=== PATIENT | female | born 1950 | race Two or more races ===

== ENCOUNTER → 2021-06-06 09:49 | Outpatient (BNVA) | payer MEDICARE, SELFPAY | PROVIDERS: PCP Physician Assistant Medical; Visit Provider Internal Medicine Rheumatology | DX: M23.92 Unspecified internal derangement of left knee (principal); M65.841 Other synovitis and tenosynovitis, right hand; M16.0 Bilateral primary osteoarthritis of hip; M70.61 Trochanteric bursitis, right hip; M70.62 Trochanteric bursitis, left hip | CPT/HCPCS: 20550; 20610; 99212 ==

== ENCOUNTER 2021-06-25 15:45 | Outpatient (REF) | payer MEDICARE, SELFPAY ==
--- NOTE | ~2021-06-25 | MR_ITS ---
EXAMINATION: MR KNEE WITHOUT CONTRAST, LEFT CLINICAL INFORMATION: Left knee pain and swelling. Twisting injury. COMPARISON: None TECHNIQUE: MRI of the knee without contrast was performed using routine sequences on a high-field scanner. FINDINGS: MENISCI: Medial Meniscus: Inner margin fraying/tearing of the posterior horn and root. Lateral Meniscus: Intact. LIGAMENTS: Cruciate: Intact. Collateral: Intact. EXTENSOR MECHANISM: Intact. ARTICULAR CARTILAGE/BONE: Patellofemoral Compartment: Full-thickness articular cartilage fissuring at the superior aspect of the patellar median ridge with underlying subchondral cystic change. Tiny marginal osteophytes. Medial Compartment: At the medial aspect of the weight-bearing medial femoral condyle there is subchondral abnormal marrow signal measuring 0.6 x 0.6 cm with prominent adjacent marrow edema, periosteal reaction, and soft tissue edema, consistent with a nondisplaced subchondral fracture. Lateral Compartment: Intact articular cartilage. JOINT FLUID AND BURSAE: Trace joint effusion and trace Galarza's cyst. MR/MR knee LT wo con IMPRESSION: 1. Nondisplaced subchondral fracture at the medial aspect of the medial femoral condyle measuring 0.6 cm with prominent adjacent marrow edema, periosteal reaction, and soft tissue edema. 2. Minimal patellofemoral arthrosis. Trace joint effusion and trace Galarza's cyst. 3. Inner margin fraying/tearing of the medial meniscus posterior horn and root.
== END 2021-06-25 15:46 | disposition home or self-care (01) ==
LOC: HO.MRI 15:45
PROVIDERS: Visit Provider Internal Medicine Rheumatology
DX: M23.92 Unspecified internal derangement of left knee (principal)
CPT/HCPCS: 73721

== ENCOUNTER → 2021-08-05 10:15 | Outpatient (BNVA) | payer MEDICARE, SELFPAY | PROVIDERS: PCP Physician Assistant Medical; Visit Provider Internal Medicine Rheumatology | DX: M70.61 Trochanteric bursitis, right hip (principal); M70.62 Trochanteric bursitis, left hip; M16.0 Bilateral primary osteoarthritis of hip; S72.413 Displaced unspecified condyle fracture of lower end of unspecified femur | CPT/HCPCS: 20610; 99212 ==

== ENCOUNTER → 2021-11-07 09:38 | Outpatient (BNVA) | payer MEDICARE, SELFPAY | PROVIDERS: PCP Physician Assistant Medical; Visit Provider Internal Medicine Rheumatology | DX: M16.0 Bilateral primary osteoarthritis of hip (principal); M70.62 Trochanteric bursitis, left hip; M70.61 Trochanteric bursitis, right hip | CPT/HCPCS: 20610; 99212 ==

== ENCOUNTER → 2022-02-11 10:43 | Outpatient (BNVA) | payer MEDICARE, SELFPAY | PROVIDERS: PCP Physician Assistant Medical; Visit Provider Internal Medicine Rheumatology | DX: M17.12 Unilateral primary osteoarthritis, left knee (principal); M70.62 Trochanteric bursitis, left hip; M70.61 Trochanteric bursitis, right hip | CPT/HCPCS: 20610; 99212 ==

== ENCOUNTER → 2022-07-22 11:15 | Outpatient (BNVA) | payer MEDICARE, SELFPAY | PROVIDERS: PCP Physician Assistant Medical; Visit Provider Internal Medicine Rheumatology | DX: M70.61 Trochanteric bursitis, right hip (principal); M70.62 Trochanteric bursitis, left hip; M65.9 Synovitis and tenosynovitis, unspecified | CPT/HCPCS: 20550; 20610; 99212 ==

== ENCOUNTER 2022-12-25 10:54 | Outpatient (AMB) | payer MEDICARE, SELFPAY ==
--- NOTE | 2022-12-25 10:55 | MHC.OFFVIS ---
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 Accompanied by: Self / Same As Patient Allergies Penicillins Allergy (Intermediate, Verified 12/25/22 11:01) itchy Sulfa (Sulfonamide Antibiotics) Allergy (Intermediate, Verified 12/25/22 11:01) burning Medication List - Last Reconciled 12/25/22 by Janae Cruz RN alendronate 70 mg PO QWEEK allopurinol 100 mg PO DAILY dulaglutide (Trulicity) 3 mg subcut QWEEK escitalopram oxalate 20 mg PO DAILY estradiol 0.01%(0.1mg/gram) 1 g vaginal 2XW fexofenadine (Allergy Relief (fexofenadine)) 180 mg PO DAILY hydrochlorothiazide 25 mg PO DAILY insulin glargine (Lantus Solostar U-100 Insulin) 10 units subcut QPM PRN lisinopril 2.5 mg PO DAILY metformin ER 500 mg PO BID metoprolol tartrate 75 mg PO BID minocycline 50 mg PO DAILY loqukhig-aya-RT-lycopen-lutein 0.4 mg-300 mcg- 250 mcg (Centrum Silver) 1 tab PO DAILY potassium citrate ER 10 mEq PO BID pseudoephedrine HCl ER (Sudafed 12 Hour) 120 mg PO Q12H simvastatin 10 mg PO BEDTIME HPI HPI Comments History of Present Illness Details The patient returns today for evaluation of her osteoarthritis and trochanteric bursitis. Back in July she had received a trochanteric corticosteroid injection on the right and a right 3rd flexor tendon records steroid injection for tenosynovitis. The right wrist has done fine following fracture earlier in the year that required surgery. She still gets some pain in the right wrist where she had a fracture earlier this year. It mostly comes on with heavier weight-bearing activity. About 6 weeks ago the right lateral hip pain started to come back again. This was eventually accompanied by knee pain on the right. Most the knee pain is on the medial aspect. Both pains come on with more weight-bearing activity such as walking. She thinks the knee may be occasionally swollen. She takes occasional acetaminophen for her symptoms. There are plans for a trip to [email or web address] in April with her grandchildren. [facility] Medical History (Updated 12/25/22 @ 13:43 by Shabbir Patel MD) Trochanteric bursitis, left hip Fracture of condyle of femur Internal derangement of left knee Trochanteric bursitis of both hips Osteoarthritis, hip, bilateral Hypertension Kidney stones Type 2 diabetes mellitus Social History Household Members: Spouse Housing: House Are you a primary critical care technician to a significant other at home: No Do you presently have visiting nurse or other home services: No 75 years or older and lives alone: No Alcohol intake: never Patient Tobacco Use Status: Never used Tobacco e-Cigarette/Vaping Use: Never Used service: No Current occupational status: retired Review of Systems Const Details: Negative for appetite change, weight change, fever, chills, malaise and fatigue Card Details: Negative chest pain, edema and syncope Resp Details: Negative for SOB, cough and wheezing Endo Details: Negative for polyuria and polydypsia Sukumar/Lymph Details: Negative for excessive bruising or bleeding. Physical Exam Vital Signs: Last Vital Signs Temp 97.6 F 12/25/22 10:57 Pulse 92 12/25/22 10:57 Resp 15 12/25/22 10:57 BP 110/72 12/25/22 10:57 Pulse Ox 97 12/25/22 10:57 Oxygen Delivery Method Room Air 12/25/22 10:57 BMI result Body Mass Index 24.6 APPEARANCE: Patient in no acute distress EXTREMITIES: No edema, no calf tenderness, normal peripheral pulses. Hands:? Right:? no pain with range of motion at the fingers. There is no triggering and tenderness.? .? There is minimal bony enlargement at the thumb IP and 2nd 3rd PIP is with minimal tenderness in the 2nd and 3rd PIP joints.? There is slight thenar atrophy and there is questionable sensory loss over the fingertips.? Left:Normal pain-free range of motion without tenderness.? There is some minimal bony enlargement at the 2nd and 3rd PIP without tenderness.? Elsewhere there is no flexor tendon triggering, soft tissue swelling, increased warmth, thenar atrophy, sensory loss or erythema. Wrists: Right: There is a healed scar along the volar aspect. It seems well healed. She actually flexes to about 75 degrees and extends to 80 degrees with minimal discomfort. No redness or tenderness although the wrist seems thicker than on the left side. Left:? Normal pain-free range of motion without tenderness, swelling, increased warmth or erythema. Hips:? Right:? Slight groin and mild lateral hip pain with 10 degrees of internal or external rotation.? Left:? Full range of motion with mild lateral pains at the extremes of normal rotation. Hip bursa:? Moderate right and mild left trochanteric tenderness. Knees:.??Right:? Normal pain-free range of motion with mild medial tenderness without effusion, soft tissue swelling, increased warmth or erythema.? There is slight patellofemoral crepitation.? Left:? Mild discomfort with extremes of normal range of motion. There is some mild medial tenderness without redness or effusion. There is some slight patellofemoral crepitus. There is no popliteal tenderness or swelling. Office Procedures Joint Injection/Drain Joint Injection/Drain Primary Site: right knee Secondary Site: other Injected: 80 mg of, Kenalog, with 3 mL of and 1% plain lidocaine Coding Details: With the patient's consent the right knee was prepped with ChloraPrep and alcohol. The skin was anesthetized with 2 cc of 1% lidocaine. The knee was then injected with 40 mg of triamcinolone and 1 cc of I % lidocaine. The patient tolerated the procedure with no immediate adverse effects. With the patient's consent, the right lateral hip area was prepped with for Chloraprep and alcohol. Under a topical ethyl chloride spray the tender area over the trochanteric region was injected with 40 mg of Kenalog and 1 cc of 1% lidocaine. The patient tolerated the procedure with no adverse effects. 95681 - Large joint (With the patient's consent the right knee was prepped with ChloraPrep and alcohol. The skin was anesthetized with 2 cc of 1% lidocaine. The knee was then injected with 40 mg of triamcinolone and 1 cc of I % lidocaine. The patient tolerated the procedure with no immediate adverse effects. With th) Procedure code (CPT) selection complete Results Reviewed Results Reviewed: [facility] [employer] MEDICAL Imaging Result Report Patient: Ann Marie Boyce Date of Service: 06/04/21 ? ? Patient Gender: Female Ordering Provider: Meryl Tidwell : 1950 ? ? ? Final X-RAY KNEE 4+ VIEW WITH INJURY Exam Date: 06/04/2021 1:37 PM Ordering Diagnosis: Chronic pain of both knees ? BILATERAL KNEES ? VIEWS: Lateral x2, Frontal (bilateral), Tunnel (bilateral), and Merchant (bilateral) ? HISTORY: Chronic pain. ? PRIOR: Right knee 12/19/2016. ? FINDINGS: ? There is spurring at the insertion of quadriceps tendon and patellar tendon on the patella bilaterally. ? No fracture or malalignment is seen. Soft tissues are normal. The patellae are normally positioned on the Merchant view. No joint effusion is seen. ? IMPRESSION IMPRESSION: No acute findings. ? ? Reading Radiologist: Cc: Assessment & Plan Assessment & Plan (1) Osteoarthritis of right knee: Code(s): M17.11 - Unilateral primary osteoarthritis, right knee (2) Trochanteric bursitis of right hip: Code(s): M70.61 - Trochanteric bursitis, right hip Plan Patient has some painful motion and tenderness at the medial compartment in the right knee. This does suggest degenerative arthritis. She has mild OA noted on previous radiographs of the knees so this is likely an exacerbation in the medial compartment. The right hip has again some tenderness on the trochanteric region consistent with trochanteric bursitis although there is some underlying osteoarthritis in the hip. She wants to go with both injections today. We reviewed potential side effects of such injections. With the patient's consent the right knee was prepped with ChloraPrep and alcohol. The skin was anesthetized with 2 cc of 1% lidocaine. The knee was then injected with 40 mg of triamcinolone and 1 cc of I % lidocaine. The patient tolerated the procedure with no immediate adverse effects. With the patient's consent, the right lateral hip area was prepped with for Chloraprep and alcohol. Under a topical ethyl chloride spray the tender area over the trochanteric region was injected with 40 mg of Kenalog and 1 cc of 1% lidocaine. The patient tolerated the procedure with no adverse effects. She will rest the area for a few days. We will send her to physical therapy particularly with respect to get exercises for the knee. She wants to go to the [facility] in [place]. I told her I would not inject any further of these 2 joints for at least 4 or 5 months. Orders: Orders AMB Joint Injection/Aspiration Today M17.11 - Unilateral primary osteoarthritis, right knee, M70.61 - Trochanteric bursitis, right hip XR knee RT 3V Today M17.11 - Unilateral primary osteoarthritis, right knee PT Evaluation and Treatment Today M17.11 - Unilateral primary osteoarthritis, right knee Coding Level of Care Code Est Pt Level 3 (14944) Diagnoses Osteoarthritis of right knee M17.11 Trochanteric bursitis of right hip M70.61 CPT Codes Coding - 74617 Large joint: 11646 - Large joint ([id number])
[2022-12-25 10:57] VITALS: BP 110/72; PULSE 92; RESP 15; TEMP 36.4; O2SAT 97; BMI 24.6
== END 2022-12-25 11:47 | disposition home or self-care (01) ==
LOC: HO.RHE 10:54
PROVIDERS: PCP Physician Assistant Medical; Visit Provider Internal Medicine Rheumatology
DX: M17.11 Unilateral primary osteoarthritis, right knee (principal); M70.61 Trochanteric bursitis, right hip
CPT/HCPCS: 20610; 99213

== ENCOUNTER → 2022-12-25 10:54 | Outpatient (BNVA) | payer MEDICARE, SELFPAY | PROVIDERS: PCP Physician Assistant Medical; Visit Provider Internal Medicine Rheumatology | DX: M17.11 Unilateral primary osteoarthritis, right knee (principal); M70.61 Trochanteric bursitis, right hip | CPT/HCPCS: 20610; 99212 ==